=== PATIENT | female | born 1960 | race Caucasian/White ===

== ENCOUNTER 2019-04-03 17:02 | Emergency (ER) | payer OTHER ==
[~2019-04-03] VITALS: Ht 160 cm; Wt 54.9 kg
--- NOTE | 2019-04-03 17:42 | NUR ---
felicia, sent by PMD for abd discomfort and bloated x 2 weeks worse in the last 7 days. ABDOMINAL DISTENSION PRESENT. C/O DECREASED APPETITE, NAUSEA, REFLUX. DENIES PAIN. DENIES SOB, DIZZINESS, WEAKNESS, VOMITING. AOX4, AMBULATORY, VSS, RR EVEN AND UNLABORED. AT BEDSIDE. MADE COMFORTABLE AND READY FOR EVAL.
[2019-04-03 18:11] LABS: BASOPHILS # (AUTO) 0.1 /CMM (0.0-0.2); BASOPHILS % (AUTO) 0.7 % (0.0-2.0); EOSINOPHILS % (AUTO) 0.9 % (0.0-6.0); HEMATOCRIT 33 % (33-45); LYMPHOCYTES # (AUTO) 1.1 /CMM (0.8-4.8); LYMPHOCYTES % (AUTO) 14.1 % (20.0-44.0); MEAN CORPUSCULAR HGB CONC 33 g/dl (31.0-36.0); MEAN CORPUSCULAR VOLUME 104 fL (82-100); MONOCYTES # (AUTO) 0.7 /CMM (0.1-1.30); MONOCYTES % (AUTO) 8.4 % (2.0-12.0); NEUTROPHILS # (AUTO) 6.2 /CMM (1.8-8.9); NEUTROPHILS % (AUTO) 75.9 % (43.0-81.0); PLATELET COUNT (AUTO) 209 /CMM (150-450); RED BLOOD CELL COUNT(AUTO) 3.19 MIL/uL (4.0-5.2); WHITE BLOOD COUNT (AUTO) 8.1 K/uL (4.3-11.0)
--- NOTE | 2019-04-03 18:13 | NUR ---
URINE SENT TO STAT LAB
[2019-04-03 18:16] LABS: APPEARANCE,URINE Slightly Cloudy (CLEAR); BILIRUBIN,URINE MODERATE (NEGATIVE); BLOOD, URINE Negative Ery/uL (NEGATIVE); COLOR,URINE Dark (YELLOW); KETONES,URINE 15 (NEGATIVE); LEUKOCYTE ESTERASE ,URINE Negative (NEGATIVE); NITRITE, URINE Positive (NEGATIVE); PH,URINE 5.5 (5.0-8.0); PROTEIN,URINE 30 mg/dl (NEGATIVE); UGLUCOSE Negative (NEGATIVE)
[2019-04-03 18:30] LABS: ALBUMIN 2.3 g/dL (3.4-5.0); BILIRUBIN,TOTAL 1.8 mg/dL (0.2-1.0); CALCIUM, SERUM 8.8 mg/dL (8.5-10.1); CREATININE 0.6 mg/dL (0.6-1.3); POTASSIUM 3.1 mmol/L (3.5-5.1); TOTAL PROTEIN, SERUM 7.2 g/dL (6.4-8.2)
[2019-04-03 18:42] LABS: SQUAMOUS EPITHELIAL CELL,UR Moderate /HPF (None Seen)
[2019-04-03 18:43] LABS: BACTERIA,URINE Moderate /HPF (None Seen); RBC,URINE 0-2 /HPF (0-2); WBC,URINE 0-2 /HPF (0-3)
--- NOTE | 2019-04-03 19:17 | NUR ---
PROVIDERS AT BEDSIDE FOR PARACENTESIS
[2019-04-03] MEDS ORDERED: IOHEXOL-300 100 ML VIAL IV ONE (20:01)
[2019-04-03] MEDS ORDERED: CT SWABBABLE VALVE TRANS SET 1 EA INFUS.SET MC ONE (20:01)
[2019-04-03] MEDS ORDERED: IV NS 0.9% 250 ML IV ONE (20:01)
--- NOTE | 2019-04-03 20:09 | NUR ---
PT TAKEN TO CT VIA REBECCA
--- NOTE | 2019-04-03 20:54 | NUR ---
ASSISTED PT TO BED MAIN
[2019-04-03] MEDS ORDERED: POTASSIUM CHLORIDE 20 MEQ TAB.PRT.SR PO ONE ×2 (22:28→22:30)
--- NOTE | 2019-04-03 22:30 | NUR ---
Patient discharged to home in stable condition. Written and verbal after care instructions given. Patient verbalizes understanding of instruction.IV removed. Catheter intact and site benign. Pressure and 4x4 applied to site. No bleeding noted.
[2019-04-03 22:31] VITALS: BP 118/78
== END 2019-04-03 22:31 | disposition home or self-care (01) ==
LOC: ER 17:12
DX: R18.8 Other ascites (principal); K21.9 Gastro-esophageal reflux disease without esophagitis; Z88.5 Allergy status to narcotic agent
CPT/HCPCS: 36415; 49083; 74177; 80048; 80076; 81001; 82140; 83690; 85025; 85730; 87070; 87086; 89051; 99285; J7050; Q9967; 81000-TC